=== PATIENT | male | born 1965 | race Caucasian/White ===

== ENCOUNTER 2019-06-28 23:51 | Observation (INO) | payer BC ==
[~2019-06-28] VITALS: Ht 167.6 cm; Wt 72.6 kg
[2019-06-29 00:43] LABS: BASOPHILS ABSOLUTE AUTO 0.03 K/mm3 (0.00-0.23); BASOPHILS PERCENT AUTO 0 % (0-2); EOSINOPHILS PERCENT AUTO 1 % (0-6); Hematocrit 29.8 % (37.0-53.0); Hemoglobin 10.2 g/dL (13.5-17.5); IMMATURE GRAN ABSOLUTE AUTO 0.05 K/mm3 (0.00-0.10); IMMATURE GRAN PERCENT AUTO 1 % (0-1); LYMPHOCYTES ABSOLUTE AUTO 2.17 K/mm3 (0.84-5.20); LYMPHOCYTES PERCENT AUTO 30 % (21-46); MONOCYTES ABSOLUTE AUTO 0.84 K/mm3 (0.16-1.47); MONOCYTES PERCENT AUTO 12 % (4-13); Mean Corpuscular HGB 34.5 pg (26.0-34.0); Mean Corpuscular HGB Conc 34.2 g/dL (31.5-36.5); Mean Corpuscular Volume 101 fL (80-100); Mean Platelet Volume 11.2 fL (9.1-12.4); NEUTROPHILS ABSOLUTE AUTO 3.96 K/mm3 (1.96-9.15); NEUTROPHILS PERCENT AUTO 56 % (41-73); RDW Standard Deviation 55.1 fL (35.1-46.3); Red Blood Cell Count 2.96 M/mm3 (4.30-5.90); White Blood Cell Count 7.15 K/mm3 (4.00-11.30)
[2019-06-29 00:54] LABS: Alanine Aminotransfer (ALT/SGP 54 U/L (12-78); Albumin, Blood 2.8 g/dL (3.4-5.0); Albumin/Globulin Ratio 0.6 (0.8-1.8); Alk Phos 205 U/L (50-136); Anion Gap 10 mmol/L (6-16); Aspartate Aminotrans (AST/SGOT 125 U/L (12-37); Bilirubin, Total 5.9 mg/dL (0.1-1.0); Blood Urea Nitrogen 9 mg/dL (8-24); Bun/Creatinine Ratio 14.9 (12.0-20.0); CO2, Blood 22 mmol/L (21-32); Calcium, Blood 8.5 mg/dL (8.5-10.1); Chloride, Blood 112 mmol/L (98-108); Ethanol (Alcohol), Blood, Med 227 mg/dL; Globulin, Blood 4.4 g/dL (2.2-4.0); Glomerular Filtration Rate >60 (60-); Glucose, Blood 83 mg/dL (70-99); Potassium, Blood 3.7 mmol/L (3.5-5.5); Sodium, Blood 144 mmol/L (136-145); Total Protein, Blood 7.2 g/dL (6.4-8.2)
[2019-06-29 00:56] LABS: Platelet Count 47 K/mm3 (150-400)
[2019-06-29] MEDS ORDERED: Atarax10 MG PO (02:43)
[2019-06-29] MEDS ORDERED: FOLI1 PO (02:43)
[2019-06-29] MEDS ORDERED: FUROSEMIDE40 MG PO (02:43)
[2019-06-29] MEDS ORDERED: PANTOPRAZOLE SO40 M2 PO (02:44)
[2019-06-29] MEDS ORDERED: VITAMIN D325 MCG PO (02:44)
[2019-06-29] MEDS ORDERED: SPIRONOLACTONE25 MG PO (02:44)
[2019-06-29] MEDS ORDERED: B-1100 M1 PO (02:45)
[2019-06-29] MEDS ORDERED: Lactulose10 GM/151 PO (02:45)
[2019-06-29] MEDS ORDERED: Vitamin K100 MCG PO (02:46)
[2019-06-29 02:53] LABS: International Normalized Ratio 1.65; Prothrombin Time Results 17.2 Sec (9.7-11.5)
[2019-06-29 05:55] LABS: Hematocrit 28.6 % (37.0-53.0); Hemoglobin 9.8 g/dL (13.5-17.5); Mean Corpuscular HGB 34.6 pg (26.0-34.0); Mean Corpuscular HGB Conc 34.3 g/dL (31.5-36.5); Mean Corpuscular Volume 101 fL (80-100); Mean Platelet Volume 10.5 fL (9.1-12.4); RDW Coefficient Variation 14.8 % (11.7-14.2); RDW Standard Deviation 54.8 fL (35.1-46.3); Red Blood Cell Count 2.83 M/mm3 (4.30-5.90); White Blood Cell Count 6.28 K/mm3 (4.00-11.30)
[2019-06-29 06:19] LABS: Alanine Aminotransfer (ALT/SGP 51 U/L (12-78); Albumin, Blood 2.6 g/dL (3.4-5.0); Albumin/Globulin Ratio 0.6 (0.8-1.8); Alk Phos 191 U/L (50-136); Anion Gap 6 mmol/L (6-16); Aspartate Aminotrans (AST/SGOT 118 U/L (12-37); Bilirubin, Total 5.6 mg/dL (0.1-1.0); Blood Urea Nitrogen 8 mg/dL (8-24); Bun/Creatinine Ratio 16.6 (12.0-20.0); CO2, Blood 25 mmol/L (21-32); Calcium, Blood 8.2 mg/dL (8.5-10.1); Chloride, Blood 112 mmol/L (98-108); Creatinine, Blood 0.48 mg/dL (0.60-1.20); Globulin, Blood 4.2 g/dL (2.2-4.0); Glomerular Filtration Rate >60 (60-); Glucose, Blood 97 mg/dL (70-99); Potassium, Blood 3.6 mmol/L (3.5-5.5); Sodium, Blood 143 mmol/L (136-145); Total Protein, Blood 6.8 g/dL (6.4-8.2)
[2019-06-29 06:28] LABS: Platelet Count 41 K/mm3 (150-400)
--- NOTE | 2019-06-29 19:03 | NUR ---
Met with to review strtegies of care. They recently moved here from [facility]. pt does not have a primary care doctor or gastrenterologist. Review of urgent care options pt can present to. Review of liver specialist in [place]. Review of medicationa sn dischareg meds with ER nurse. Review of advance directive and polst. Pt showing sever caregiver stress. Had chapadams espinoza come in and spek with patient about getting a sponser and going to meetings. demonstrated understanding of current medications and of use of librium and when to seek care. offered follow up support to .Pt assited to his vehicle.
== END 2019-06-29 17:10 | disposition home or self-care (01) ==
LOC: ER 23:51 → ERHOLD 23:53 → ER 06-29 00:31 → ERHOLD 06-29 00:31
PROVIDERS: Emergency Medicine; ADMIT Internal Medicine
DX: G92 Toxic encephalopathy (principal); B17.8 Other specified acute viral hepatitis; F10.129 Alcohol abuse with intoxication, unspecified; E86.0 Dehydration; K70.31 Alcoholic cirrhosis of liver with ascites; D69.6 Thrombocytopenia, unspecified
CPT/HCPCS: 36415; 80053; 82140; 82947; 83690; 85025; 85027; 85610; 90686; 93005; 93010; 96361; 96372; 96374; 96375; 99285-25; A9270-GY; G0378; G0480; J1650; J2405; J3010; J7030

== ENCOUNTER 2019-07-30 18:57 | Emergency (ER) | payer BC ==
[~2019-07-30] VITALS: Ht 167.6 cm; Wt 63.5 kg
[~2019-07-30 18:57] MED LIST: Atarax10 MG PO; B-1100 M1 PO; FOLI1 PO; FUROSEMIDE40 MG PO; Lactulose10 GM/151 PO; PANTOPRAZOLE SO40 M2 PO; SPIRONOLACTONE25 MG PO; VITAMIN D325 MCG PO; Vitamin K100 MCG PO
== END 2019-07-30 21:02 | disposition home or self-care (01) ==
LOC: ER 18:57
DX: F10.229 Alcohol dependence with intoxication, unspecified (principal); I12.0 Hypertensive chronic kidney disease with stage 5 chronic kidney disease or end stage renal disease; N18.6 End stage renal disease; K74.60 Unspecified cirrhosis of liver; Z86.19 Personal history of other infectious and parasitic diseases; Z79.899 Other long term (current) drug therapy; Z88.8 Allergy status to other drugs, medicaments and biological substances; F17.200 Nicotine dependence, unspecified, uncomplicated
CPT/HCPCS: 99284

== ENCOUNTER 2019-08-12 20:08 | Emergency (ER) | payer BC ==
[~2019-08-12] VITALS: Ht 167.6 cm; Wt 77.1 kg
[2019-08-12 21:14] LABS: BASOPHILS ABSOLUTE AUTO 0.06 K/mm3 (0.00-0.23); BASOPHILS PERCENT AUTO 1 % (0-2); EOSINOPHILS ABSOLUTE AUTO 0.13 K/mm3 (0.00-0.68); EOSINOPHILS PERCENT AUTO 2 % (0-6); Hematocrit 24.5 % (37.0-53.0); Hemoglobin 8.4 g/dL (13.5-17.5); IMMATURE GRAN ABSOLUTE AUTO 0.14 K/mm3 (0.00-0.10); IMMATURE GRAN PERCENT AUTO 2 % (0-1); LYMPHOCYTES ABSOLUTE AUTO 2.19 K/mm3 (0.84-5.20); LYMPHOCYTES PERCENT AUTO 31 % (21-46); MONOCYTES ABSOLUTE AUTO 0.74 K/mm3 (0.16-1.47); MONOCYTES PERCENT AUTO 10 % (4-13); Mean Corpuscular HGB 35.3 pg (26.0-34.0); Mean Corpuscular HGB Conc 34.3 g/dL (31.5-36.5); Mean Corpuscular Volume 103 fL (80-100); Mean Platelet Volume 9.6 fL (9.1-12.4); NEUTROPHILS ABSOLUTE AUTO 3.84 K/mm3 (1.96-9.15); NEUTROPHILS PERCENT AUTO 54 % (41-73); NRBC ABSOLUTE 0.02 K/mm3 (0.00-0.02); NRBC Auto 0.3 /100 WBC (0.0-0.2); Platelet Count 67 K/mm3 (150-400); RDW Coefficient Variation 15.7 % (11.7-14.2); RDW Standard Deviation 58.4 fL (35.1-46.3); Red Blood Cell Count 2.38 M/mm3 (4.30-5.90)
[2019-08-12 21:19] LABS: Alanine Aminotransfer (ALT/SGP 60 U/L (12-78); Albumin, Blood 2.9 g/dL (3.4-5.0); Albumin/Globulin Ratio 0.7 (0.8-1.8); Alk Phos 178 U/L (50-136); Anion Gap 6 mmol/L (6-16); Aspartate Aminotrans (AST/SGOT 179 U/L (12-37); Bilirubin, Total 9.9 mg/dL (0.1-1.0); Blood Urea Nitrogen 6 mg/dL (8-24); Bun/Creatinine Ratio 12.5 (12.0-20.0); CO2, Blood 25 mmol/L (21-32); Chloride, Blood 112 mmol/L (98-108); Creatinine, Blood 0.48 mg/dL (0.60-1.20); Globulin, Blood 4.2 g/dL (2.2-4.0); Glomerular Filtration Rate >60 (60-); Glucose, Blood 90 mg/dL (70-99); Potassium, Blood 4.2 mmol/L (3.5-5.5); Sodium, Blood 143 mmol/L (136-145); Total Protein, Blood 7.1 g/dL (6.4-8.2)
[2019-08-12] MEDS ORDERED: Aldactone100 MG PO (21:54)
[2019-08-12] MEDS ORDERED: Kristalose20 GM PO (21:54)
[2019-08-12] MEDS ORDERED: Atarax10 MG PO (21:54)
[2019-08-12] MEDS ORDERED: LEVE500 PO (21:54)
[2019-08-12] MEDS ORDERED: Lasix40 MG PO (21:54)
== END 2019-08-12 23:40 | disposition home or self-care (01) ==
LOC: ER 20:08
PROVIDERS: Emergency Medicine
DX: R56.9 Unspecified convulsions (principal); K70.31 Alcoholic cirrhosis of liver with ascites; I12.0 Hypertensive chronic kidney disease with stage 5 chronic kidney disease or end stage renal disease; N18.6 End stage renal disease; F17.200 Nicotine dependence, unspecified, uncomplicated; Z88.8 Allergy status to other drugs, medicaments and biological substances; Z79.899 Other long term (current) drug therapy
CPT/HCPCS: 36415; 70450; 80053; 85025; 93005; 93010; 96374; 99285-25; J1953

== ENCOUNTER 2019-09-21 23:03 | Inpatient (IN) | payer BC ==
[~2019-09-21] VITALS: Ht 167.6 cm; Wt 78.2 kg
[~2019-09-21 23:03] MED LIST changes: +Aldactone100 MG PO; +Kristalose20 GM PO; +LEVE500 PO; +Lasix40 MG PO
[2019-09-22 00:27] LABS: BASOPHILS ABSOLUTE AUTO 0.07 K/mm3 (0.00-0.23); BASOPHILS PERCENT AUTO 1 % (0-2); EOSINOPHILS ABSOLUTE AUTO 0.12 K/mm3 (0.00-0.68); EOSINOPHILS PERCENT AUTO 2 % (0-6); Hematocrit 23.5 % (37.0-53.0); Hemoglobin 7.8 g/dL (13.5-17.5); IMMATURE GRAN PERCENT AUTO 1 % (0-1); LYMPHOCYTES ABSOLUTE AUTO 2.63 K/mm3 (0.84-5.20); LYMPHOCYTES PERCENT AUTO 33 % (21-46); MONOCYTES PERCENT AUTO 15 % (4-13); Mean Corpuscular HGB 37.5 pg (26.0-34.0); Mean Corpuscular HGB Conc 33.2 g/dL (31.5-36.5); Mean Corpuscular Volume 113 fL (80-100); NEUTROPHILS ABSOLUTE AUTO 3.94 K/mm3 (1.96-9.15); NEUTROPHILS PERCENT AUTO 49 % (41-73); Platelet Count 52 K/mm3 (150-400); RDW Coefficient Variation 15.3 % (11.7-14.2); RDW Standard Deviation 61.1 fL (35.1-46.3); Red Blood Cell Count 2.08 M/mm3 (4.30-5.90); White Blood Cell Count 8.06 K/mm3 (4.00-11.30)
[2019-09-22 00:41] LABS: International Normalized Ratio 1.8; Prothrombin Time Results 18.6 Sec (9.7-11.5)
[2019-09-22 00:43] LABS: Alanine Aminotransfer (ALT/SGP 40 U/L (12-78); Albumin, Blood 2.7 g/dL (3.4-5.0); Albumin/Globulin Ratio 0.7 (0.8-1.8); Alk Phos 175 U/L (50-136); Anion Gap 10 mmol/L (6-16); Aspartate Aminotrans (AST/SGOT 109 U/L (12-37); Bilirubin, Total 8.3 mg/dL (0.1-1.0); Blood Urea Nitrogen 7 mg/dL (8-24); Bun/Creatinine Ratio 12.9 (12.0-20.0); CO2, Blood 23 mmol/L (21-32); Calcium, Blood 8.1 mg/dL (8.5-10.1); Chloride, Blood 112 mmol/L (98-108); Creatinine, Blood 0.54 mg/dL (0.60-1.20); Glomerular Filtration Rate >60 (60-); Glucose, Blood 102 mg/dL (70-99); Potassium, Blood 3.7 mmol/L (3.5-5.5); Sodium, Blood 145 mmol/L (136-145); Total Protein, Blood 6.7 g/dL (6.4-8.2)
--- NOTE | 2019-09-22 04:57 | NUR ---
SHIFT SUMMARY: PATIENT ARRIVED AT APPROX 0227 VIA GURNEY FROM ED, SLIDE TRANSFER TO BED D/T PATIENTS STATED INABILITY TO STAND. PATIENT ALERT AND ORIENTED, ADMISSION COMPLETED, PATIENT ORIENTED TO ROOM, CALL LIGHT AND HSPITAL POLICIES. PATIENT RIGHT ARM TAUT AND SWOLLEN WITH NUMBNESS PER PATIENT. RIGHT BUTTOCK SWOLLEN AND SKIN TAUT, PATIENT STATES PAIN IN BUTTOCK IS NOT RELIEVED WITH PAIN MEDICATIONS. PATIENT JAUNDICED, FFP STARTED, VSS. BED LOW AND LOCKED, CALL LIGHT WITHIN REACH.
[2019-09-22 06:42] LABS: BASOPHILS ABSOLUTE AUTO 0.04 K/mm3 (0.00-0.23); BASOPHILS PERCENT AUTO 1 % (0-2); EOSINOPHILS ABSOLUTE AUTO 0.08 K/mm3 (0.00-0.68); EOSINOPHILS PERCENT AUTO 1 % (0-6); Hematocrit 21.3 % (37.0-53.0); IMMATURE GRAN ABSOLUTE AUTO 0.07 K/mm3 (0.00-0.10); IMMATURE GRAN PERCENT AUTO 1 % (0-1); LYMPHOCYTES ABSOLUTE AUTO 1.79 K/mm3 (0.84-5.20); LYMPHOCYTES PERCENT AUTO 28 % (21-46); MONOCYTES ABSOLUTE AUTO 1.03 K/mm3 (0.16-1.47); MONOCYTES PERCENT AUTO 16 % (4-13); Mean Corpuscular HGB 37.8 pg (26.0-34.0); Mean Corpuscular HGB Conc 32.9 g/dL (31.5-36.5); Mean Corpuscular Volume 115 fL (80-100); Mean Platelet Volume 10.2 fL (9.1-12.4); NEUTROPHILS ABSOLUTE AUTO 3.43 K/mm3 (1.96-9.15); NEUTROPHILS PERCENT AUTO 53 % (41-73); RDW Coefficient Variation 15.2 % (11.7-14.2); RDW Standard Deviation 62.6 fL (35.1-46.3); Red Blood Cell Count 1.85 M/mm3 (4.30-5.90); White Blood Cell Count 6.44 K/mm3 (4.00-11.30)
[2019-09-22 07:02] LABS: Alanine Aminotransfer (ALT/SGP 39 U/L (12-78); Albumin, Blood 2.8 g/dL (3.4-5.0); Albumin/Globulin Ratio 0.7 (0.8-1.8); Alk Phos 172 U/L (50-136); Anion Gap 12 mmol/L (6-16); Aspartate Aminotrans (AST/SGOT 106 U/L (12-37); Bilirubin, Total 7.8 mg/dL (0.1-1.0); Blood Urea Nitrogen 8 mg/dL (8-24); Bun/Creatinine Ratio 16.4 (12.0-20.0); CO2, Blood 22 mmol/L (21-32); Calcium, Blood 8.1 mg/dL (8.5-10.1); Chloride, Blood 110 mmol/L (98-108); Creatinine, Blood 0.49 mg/dL (0.60-1.20); Globulin, Blood 4.1 g/dL (2.2-4.0); Glomerular Filtration Rate >60 (60-); Glucose, Blood 94 mg/dL (70-99); Potassium, Blood 3.9 mmol/L (3.5-5.5); Sodium, Blood 144 mmol/L (136-145); Total Protein, Blood 6.9 g/dL (6.4-8.2)
[2019-09-22 07:13] LABS: Platelet Count 46 K/mm3 (150-400)
--- NOTE | 2019-09-22 07:48 | NUR ---
AM NOTE... ASSUMED CARE OF PT APROX 0700. PT IS A&Ox4 SLEEPY/DROWSY DUE TO PAIN MEDICATION AT THIS TIME. VS STABLE. PT IS ON 2 L NC FOR COMFORT AND DROWSINESS. PT WAKES EASILY TO VERBAL STIMULUS. L/S CLEAR T/O. BT PRESENT AND HYPERACTIVE ABD SLIGHTLY FIRM WITH MILD DISTENDED. PT'S RIGHT ARM IS SWOLLEN AND TIGHT FROM MID-FORARM TO SLIGHTLY ABOVE THE ELBOW. PT STATES IT IS "NUMB" AT THIS TIME. HEMATOMA TO THE PT'S RIGHT BUTTOCKS IS APROX THE SIZE OF A SOFTBALL, FRIM AND PAINFUL, INCREASED PAIN TO TOUCH/PALP. SKIN IS JAUNDICED WITH SCATTERED BRUSIES, PT STATES THIS IS NORMAL FOR HIM, SKIN IS OTHERWISE INTACT. CALL LIGHT IN REACH WILL CONTINUE TO MONITOR.
[2019-09-22 12:20] LABS: Hemoglobin 7.2 g/dL (13.5-17.5)
--- NOTE | 2019-09-22 17:03 | NUR ---
SHIFT SUMMARY... NO ACUTE NEGATIVE CHANGES NOTED THIS SHIFT. PT'S VS HAVE BEEN STABLE. PT HAS BEEN RESTING WITH EYES CLOSED FOR MOST OF THIS SHIFT. PT HAS BEEN ABLE TO VOID IN THE URINAL INDEPENDENTLY. AN ARM SLING WAS PLACED ON THE PT PER ORDERS, PT'S RIGHT ARM IS STILL VERY SWOLLEN AND TIGHT. HEMATOMA ON THE BUTTOCKS HAS NOT CHANGED IN SIZE OR SHAPE THIS SHIFT. PT'S H&H HAVE BEEN STABLE. CALL LIGHT IN REACH WILL CONTINUE TO MONITOR UNTIL REPORT IS GIVEN TO ONCOMING RN.
[2019-09-22 18:23] LABS: Hematocrit 20.8 % (37.0-53.0); Mean Corpuscular HGB 38.3 pg (26.0-34.0); Mean Corpuscular HGB Conc 33.7 g/dL (31.5-36.5); Mean Corpuscular Volume 114 fL (80-100); Mean Platelet Volume 9.7 fL (9.1-12.4); RDW Coefficient Variation 14.9 % (11.7-14.2); RDW Standard Deviation 59.9 fL (35.1-46.3); Red Blood Cell Count 1.83 M/mm3 (4.30-5.90)
[2019-09-22 18:25] LABS: Platelet Count 46 K/mm3 (150-400)
--- NOTE | 2019-09-22 22:33 | NUR ---
ASSUMED CARE OF PT AT 1900. PT RESTING IN BED WITH COMPLAINTS OF PAIN IN R ARM AND R BUTTOCKS, WHICH ARE SWOLLEN AND BRUISED. ICE APPLIED WITHOUT RELIEF. PT MEDICATED PER ORDERS AND IS TOLERATING PAIN MEDICATION WELL. PT RESTING QUIETLY WITH EYES CLOSED AT THIS TIME.
[2019-09-23 00:26] LABS: Hematocrit 21.9 % (37.0-53.0); Hemoglobin 7.2 g/dL (13.5-17.5)
[2019-09-23 01:21] LABS: BASOPHILS ABSOLUTE AUTO 0.04 K/mm3 (0.00-0.23); BASOPHILS PERCENT AUTO 1 % (0-2); EOSINOPHILS ABSOLUTE AUTO 0.12 K/mm3 (0.00-0.68); EOSINOPHILS PERCENT AUTO 2 % (0-6); Hematocrit 21.4 % (37.0-53.0); Hemoglobin 7.2 g/dL (13.5-17.5); IMMATURE GRAN ABSOLUTE AUTO 0.05 K/mm3 (0.00-0.10); IMMATURE GRAN PERCENT AUTO 1 % (0-1); LYMPHOCYTES ABSOLUTE AUTO 1.43 K/mm3 (0.84-5.20); LYMPHOCYTES PERCENT AUTO 21 % (21-46); MONOCYTES ABSOLUTE AUTO 1.08 K/mm3 (0.16-1.47); MONOCYTES PERCENT AUTO 16 % (4-13); Mean Corpuscular HGB 38.5 pg (26.0-34.0); Mean Corpuscular HGB Conc 33.6 g/dL (31.5-36.5); Mean Corpuscular Volume 114 fL (80-100); Mean Platelet Volume 9.9 fL (9.1-12.4); NEUTROPHILS PERCENT AUTO 60 % (41-73); RDW Coefficient Variation 14.7 % (11.7-14.2); RDW Standard Deviation 59.7 fL (35.1-46.3); Red Blood Cell Count 1.87 M/mm3 (4.30-5.90); White Blood Cell Count 6.82 K/mm3 (4.00-11.30)
[2019-09-23 01:22] LABS: Platelet Count 46 K/mm3 (150-400)
--- NOTE | 2019-09-23 03:59 | NUR ---
SHIFT SUMMARY PT HAS BEEN A/O X 3-4 DURING THE NIGHT. PT HAS BEEN BEDREST BUT SITS ON EDGE OF BED TO USE URINAL AND REPOSITIONS SELF IN BED. PT HAS DENIED SYMPTOMS OF ETOH WITHDRAWAL DURING THE NIGHT. PT HAS HAD C/O PAIN AND HAS BEEN MEDICATED PER ORDERS. PLATELETS HAVE CONTINUED TO BE LOW; HOSPITALIST NOTIFIED; NO NEW ORDERS GIVEN. WCTM FOR ANY CHANGES. PT DOES HAVE HEMATOMA TO R BUTTOCKS AND R ARM; NO SIGNS OF WORSENING THROUGHOUT THE SHIFT. NO ACUTE CHANGES OVERNIGHT. VSS. WCTM.
[2019-09-23 06:22] LABS: Hematocrit 20.8 % (37.0-53.0); Hemoglobin 7.1 g/dL (13.5-17.5)
[2019-09-23] MEDS ORDERED: FERSU300 PO (13:15)
[2019-09-23] MEDS ORDERED: OXYC5 PO (13:46)
--- NOTE | 2019-09-23 17:45 | NUR ---
DISCHARGE SUMMARY PT A&OX4, VSS, LEFT FLOOR VIA WC WITH SNRN WITH ALL PERSONAL POSSESSIONS INCLUDING GAIT BELT, DC PACKET AND 1 NARC SCRIPT. DC INSTRUCTIONS PROVIDED. PT REP UNDERSTANDING THOSE INSTRUCTIONS INCLUDING NEW PCP APPT, NEW SCRIPTS AVAILABLE AT [facility], BUYING EQUIPMENT: HEMIWALKER, SHOWER CHAIR, WEAR SLING AT ALL TIMES, NWB. IV DC'D.
== END 2019-09-23 17:17 | disposition home or self-care (01) | DRG 604 ==
LOC: ER 23:03 → PCU 23:04 → ER 23:04 → PCU 23:04
PROVIDERS: Emergency Medicine; Hospitalist; ADMIT Internal Medicine
PROC: 30233N1 Transfusion of Nonautologous Red Blood Cells into Peripheral Vein, Percutaneous Approach (ICD-10-PCS; principal; 2019-09-22)
DX: S30.0XXA Contusion of lower back and pelvis, initial encounter (principal); N18.6 End stage renal disease; I85.10 Secondary esophageal varices without bleeding; I12.0 Hypertensive chronic kidney disease with stage 5 chronic kidney disease or end stage renal disease; F17.210 Nicotine dependence, cigarettes, uncomplicated; M79.601 Pain in right arm; D69.6 Thrombocytopenia, unspecified; K70.10 Alcoholic hepatitis without ascites; F10.10 Alcohol abuse, uncomplicated; Y92.9 Unspecified place or not applicable; W01.0XXA Fall on same level from slipping, tripping and stumbling without subsequent striking against object, initial encounter; S52.126A Nondisplaced fracture of head of unspecified radius, initial encounter for closed fracture
CPT/HCPCS: 36415; 36430; 73080; 73090; 73700; 74176; 80053; 85014; 85018; 85025; 85027; 85610; 85730; 86850; 86900; 86901; 96374; 97112; 97116; 97162; 99285-25; A9270-GY; J1170; J2060; J2405; J3010; P9059

== ENCOUNTER 2019-09-30 21:06 | Emergency (ER) | payer BC ==
[~2019-09-30] VITALS: Ht 167.6 cm; Wt 72.6 kg
[~2019-09-30 21:06] MED LIST changes: +FERSU300 PO; +OXYC5 PO
[2019-09-30 21:39] LABS: BASOPHILS ABSOLUTE AUTO 0.09 K/mm3 (0.00-0.23); BASOPHILS PERCENT AUTO 1 % (0-2); EOSINOPHILS ABSOLUTE AUTO 0.32 K/mm3 (0.00-0.68); EOSINOPHILS PERCENT AUTO 3 % (0-6); Hematocrit 25.7 % (37.0-53.0); Hemoglobin 8.2 g/dL (13.5-17.5); IMMATURE GRAN ABSOLUTE AUTO 0.18 K/mm3 (0.00-0.10); IMMATURE GRAN PERCENT AUTO 1 % (0-1); LYMPHOCYTES ABSOLUTE AUTO 2.56 K/mm3 (0.84-5.20); LYMPHOCYTES PERCENT AUTO 21 % (21-46); MONOCYTES ABSOLUTE AUTO 2.75 K/mm3 (0.16-1.47); MONOCYTES PERCENT AUTO 22 % (4-13); Mean Corpuscular HGB 35.7 pg (26.0-34.0); Mean Corpuscular HGB Conc 31.9 g/dL (31.5-36.5); Mean Corpuscular Volume 112 fL (80-100); NEUTROPHILS ABSOLUTE AUTO 6.55 K/mm3 (1.96-9.15); NEUTROPHILS PERCENT AUTO 53 % (41-73); Platelet Count 107 K/mm3 (150-400); RDW Coefficient Variation 15.2 % (11.7-14.2); RDW Standard Deviation 61.7 fL (35.1-46.3); White Blood Cell Count 12.45 K/mm3 (4.00-11.30)
[2019-09-30 21:52] LABS: Alanine Aminotransfer (ALT/SGP 50 U/L (12-78); Albumin, Blood 2.7 g/dL (3.4-5.0); Albumin/Globulin Ratio 0.6 (0.8-1.8); Alk Phos 177 U/L (50-136); Anion Gap 5 mmol/L (6-16); Aspartate Aminotrans (AST/SGOT 168 U/L (12-37); Bilirubin, Total 12.9 mg/dL (0.1-1.0); Blood Urea Nitrogen 6 mg/dL (8-24); Bun/Creatinine Ratio 13.4 (12.0-20.0); CO2, Blood 25 mmol/L (21-32); Calcium, Blood 7.6 mg/dL (8.5-10.1); Chloride, Blood 110 mmol/L (98-108); Creatinine, Blood 0.45 mg/dL (0.60-1.20); Globulin, Blood 4.9 g/dL (2.2-4.0); Glomerular Filtration Rate >60 (60-); Glucose, Blood 102 mg/dL (70-99); Potassium, Blood 4.9 mmol/L (3.5-5.5); Sodium, Blood 140 mmol/L (136-145); Total Protein, Blood 7.6 g/dL (6.4-8.2)
[2019-09-30 21:54] LABS: International Normalized Ratio 1.65; Prothrombin Time Results 17.2 Sec (9.7-11.5)
[2019-09-30 22:05] LABS: Base Excess Venous -1.2 mmol/L; Bicarbonate Venous 23.5 mmol/L (24.0-30.0); PCO2 Venous 40.5 mmHg (38-42); PO2 Venous 116 mmHg (38-42); pH Blood Venous 7.38 (7.34-7.37)
[2019-09-30 22:43] LABS: Source, Urine Voided
[2019-09-30 22:46] LABS: Blood, Urine 5+ (Neg); Glucose Qualitative, Urine Neg (Neg); Ketones, Urine Neg (Neg); Leukocyte Esterase, Urine Neg (Neg); Nitrite, Urine Neg (Neg); Protein, Urine 2+ (Neg); Specific Gravity, Urine 1.005 (1.003-1.022); Urobilinogen, Urine 4+ (Normal); pH, Urine 6.5 (5.0-8.0)
[2019-09-30 22:53] LABS: Appearance, Urine Clear (Clear); Bilirubin, Urine 2+ (Neg); Color, Urine Yellow (P-Yellow)
[2019-09-30 23:04] LABS: Bacteria Few /hpf; Squamous Epithelial Cells Not Seen /hpf (Few); White Blood Cells, Urine 0-2 /hpf (0-5)
== END 2019-10-01 01:08 | disposition home or self-care (01) ==
LOC: ER 21:06
PROVIDERS: Emergency Medicine
DX: S50.11XA Contusion of right forearm, initial encounter (principal); S30.0XXA Contusion of lower back and pelvis, initial encounter; K72.90 Hepatic failure, unspecified without coma; F10.10 Alcohol abuse, uncomplicated; Y90.8 Blood alcohol level of 240 mg/100 ml or more; Z88.8 Allergy status to other drugs, medicaments and biological substances; Z79.899 Other long term (current) drug therapy; I12.0 Hypertensive chronic kidney disease with stage 5 chronic kidney disease or end stage renal disease; N18.6 End stage renal disease; K74.60 Unspecified cirrhosis of liver; F17.200 Nicotine dependence, unspecified, uncomplicated; W19.XXXA Unspecified fall, initial encounter
CPT/HCPCS: 36415; 70450; 71045; 80053; 81001; 82140; 82803; 83690; 85025; 85610; 93005; 93010; 93931; 93971; 99285-25; G0480